=== PATIENT | male | born 1950 | race Caucasian/White ===

== ENCOUNTER 2020-08-30 10:26 | Outpatient (REF) | payer BC, SELFPAY ==
[2020-08-30 10:32] LABS: MANUAL DIFF FLAG NO
[2020-08-30 10:47] LABS: Basophils Percent Auto 0.3 % (0-2); Eosinophils Absolute Auto 0.3 X10*3/uL (0.0-0.4); Eosinophils Percent Auto 4.3 % (0-4); Hematocrit 42.1 % (42-52); Hemoglobin 13.6 g/dl (14.0-18.0); Imm Gran Abs Auto 0.01 X10*3/uL (0.00-0.03); Imm Gran Pct Auto 0.2 % (0.0-0.4); Lymphocytes Absolute Auto 2.2 X10*3/uL (1.2-4.9); Lymphocytes Percent Auto 34.8 % (20-40); Mean Corpuscular HGB Conc 32.3 g/dl (31.0-36.0); Mean Corpuscular Hemoglobin 28.5 pg (27.0-33.0); Mean Corpuscular Volume 88.1 fL (80-98); Mean Platelet Volume 9.4 fL (9.4-12.4); Monocytes Absolute Auto 0.6 X10*3/uL (0.1-1.2); Monocytes Percent Auto 9.1 % (2-11); Neutrophils Absolute Auto 3.2 X10*3/uL (2.0-8.3); Neutrophils Percent Auto 51.3 % (45-73); Platelet Count 303 X10*3/uL (160-400); Red Blood Count 4.78 X10*6/uL (4.60-5.80); White Blood Count 6.3 X10*3/uL (4.8-10.8)
[2020-08-30 11:31] LABS: Alanine Aminotransferase 10 U/L (0-40); Albumin Level 4.2 g/dL (3.5-5.0); Alkaline Phosphatase 68 U/L (39-117); Anion Gap 13 (12-20); Aspartate Amino Transferase 15 U/L (5-37); Bilirubin Total 0.7 mg/dL (0.0-1.0); Blood Urea Nitrogen 17 mg/dL (9-16); Calcium 9.1 mg/dL (8.4-10.2); Carbon Dioxide 25 mmol/L (22-29); Chloride 110 mmol/L (96-108); Cholesterol 157 mg/dL; Estimated Glomerular Filt Rate 53; Glucose Fasting 98 mg/dL (60-99); HDL Cholesterol 44 mg/dL; LDL Cholesterol Calculated 102 mg/dl; Potassium 4.4 mmol/L (3.3-5.1); Sodium 144 mmol/L (135-145); Total Protein 6.7 g/dL (6.5-8.0); Triglycerides 58 mg/dL
[2020-08-30 12:30] LABS: PSA,Total (Free>4and<10) < 0.05 ng/mL (0.00-4.00)
[2020-09-01 05:31] LABS: Lyme Abs Screen <0.90 index
== END 2020-08-30 10:27 | disposition home or self-care (01) ==
LOC: HO.LNP 10:26
PROVIDERS: Visit Provider Internal Medicine
DX: Z00.00 Encounter for general adult medical examination without abnormal findings (principal); Z12.5 Encounter for screening for malignant neoplasm of prostate; I10 Essential (primary) hypertension; E78.00 Pure hypercholesterolemia, unspecified; R97.20 Elevated prostate specific antigen [PSA]; G31.83 Neurocognitive disorder with Lewy bodies
CPT/HCPCS: 80053; 80061; 84153; 85025; 86617; 86618

== ENCOUNTER 2020-09-08 12:18 | Outpatient (REF) | payer MEDICARE, SELFPAY ==
[2020-09-08 12:37] LABS: Appearance Urine CLEAR; Color Urine YELLOW; Glucose Urine UA NEG (NEG); Leukocyte Esterase Urine NEG (NEG); Nitrite Urine NEG (NEG); Specific Gravity - Urine 1.025 (1.005-1.025); Urine Blood TRACE (NEG); Urine Ketones NEG (NEG); Urine Protein NEG (NEG-TRACE)
[2020-09-08 12:46] LABS: Mucus Urine TRACE /LPF; RBC Urine 0-2 /HPF (0); WBC Urine 0 /HPF (0-4)
== END 2020-09-08 12:19 | disposition home or self-care (01) ==
LOC: HO.LNP 12:18
PROVIDERS: Visit Provider Internal Medicine
DX: Z00.00 Encounter for general adult medical examination without abnormal findings (principal)
CPT/HCPCS: 81001

== ENCOUNTER 2021-08-17 07:54 | Emergency (ER) | payer MEDICARE, MEDICAID, SELFPAY ==
--- NOTE | ~2021-08-17 | CT_ITS ---
EXAMINATION: CT HEAD WITHOUT CONTRAST CLINICAL INFORMATION: Altered mental status. COMPARISON: Head CT scan dated 01/23/2019. TECHNIQUE: Contiguous axial imaging was performed from the skull base to vertex without intravenous administration of contrast. Coronal and sagittal reformatted images were obtained. Some limitation secondary to motion artifact. This CT examination was performed using dose optimization techniques as appropriate, variously including the following: *Automated exposure control *Adjustment of mA and/or kV according to patient size (this includes techniques or standardized protocols for targeted exams where dose is matched to indication/reason for exam; i.e. extremities or head) *Use of iterative reconstruction technique DLP: 712 mGy-cm FINDINGS: There is mild widening of the cortical sulci and associated ventriculomegaly. Mild periventricular microvascular changes. The lateral ventricles are symmetrical. The third and fourth ventricles are in their normal midline position. The basilar and prepontine cisterns are unremarkable. There is no acute intra or extracerebral abnormality. There is no mass effect or midline shift. Sections through the bony calvarium are unremarkable. The orbits are intact. The paranasal sinuses are clear. The mastoid air cells are clear. CT/CT head/brain wo con IMPRESSION: No acute intracranial pathology.
--- NOTE | ~2021-08-17 | XR_ITS ---
EXAMINATION: XR CHEST CLINICAL INFORMATION: Weakness COMPARISON: Chest radiograph 06/11/2015 TECHNIQUE: Frontal view of the chest was obtained. FINDINGS: No significant abnormality is noted involving the heart, lungs, mediastinum, bony thorax or soft tissues. XR/XR chest 1V IMPRESSION: Unremarkable examination.
[2021-08-17 08:01] VITALS: BP 136/82; BP 137/89; PULSE 71; PULSE 85; RESP 16; TEMP 36.7; O2SAT 98; BMI 19.1
--- NOTE | 2021-08-17 08:12 | ECG_ITS ---
Test Reason : failure to thrive Blood Pressure : / mmHG Vent. Rate : 078 BPM Atrial Rate : 078 BPM P-R Int : 160 ms QRS Dur : 062 ms QT Int : 380 ms P-R-T Axes : 073 018 065 degrees QTc Int : 433 ms Normal sinus rhythm Possible Left atrial enlargement Borderline ECG When compared with ECG of 11-JUN-2015 04:09, No significant changes seen Referred By: Gunjan Ramirez Electronically Signed By:ZOYA JOEL
--- NOTE | 2021-08-17 08:19 | ED_ITS ---
HPI - Altered Mental Status General Chief Complaint: General Medical Stated Complaint: UNREADABLE Time Seen by Provider: 08/17/21 08:12 Source: patient and EMS Mode of arrival: EMS Limitations: no limitations and altered mental status History of Present Illness HPI narrative: 71 yo male with hx of HTN, gout, dementia comes from home he has been progressing but the patient has rapidly progressed over the past week he has fallen x 3 in the past month no head strikes. He comes in with strong odor of urine. notes rapid decompensation MD complaint: altered mental status and decreased responsiveness Onset (ago): week(s) (1) Timing confirmed by: spouse Severity: severe Consistency of symptoms: getting Worse Context: other (dementia) Associated symptoms: malaise, weakness, foul smelling urine and difficulty walking Related Data Home Medications Medication Instructions Recorded Confirmed No Known Home Meds 08/17/21 08/17/21 Allergies Allergy/AdvReac Type Severity Reaction Status Date / Time azithromycin [AZITHROMYCIN] Allergy Unknown UNKNOWN Unverified 11/05/19 15:36 ibuprofen [IBUPROFEN] Allergy Unknown KIDNEY Unverified 11/05/19 15:36 PROBLEMS lisinopril [LISINOPRIL] Allergy Unknown COUGH Unverified 11/05/19 15:36 losartan [LOSARTAN] Allergy Unknown HEART Unverified 11/05/19 15:36 RACING valsartan [From DIOVAN] Allergy Unknown ELEVATED Unverified 11/05/19 15:36 POTASSIUM Review of Systems Review of Systems: ROS unable to be obtained due to altered mental status PMFSH Past Medical History Attestation statement: The following information was validated with the patient. Medical History Dementia Gout HTN (hypertension) Social History Social History (Updated 08/17/21 @ 08:20 by Gunjan Ramirez DO) Patient Tobacco Use Status: Never used Tobacco Advance Directives: Yes Advance Directives Information Provided: Yes Advance Directives on File: No Physical Exam ED Vital Signs: Vital Signs - 24 hr 08/17/21 08:01 08/17/21 09:06 Temperature 98.1 F 99.4 F Pulse Rate 71 Respiratory Rate 16 Blood Pressure 137/89 Pulse Oximetry 98 Oxygen Delivery Method Room Air BMI result Body Mass Index 19.1 Appearance: Weak appearing, Confused just says okay to everything. Mild acute distress. Eyes: Pupils equal, round and reactive to light. ENT: Pharynx dry MM Neck: Normal inspection. Neck supple. CVS: Normal heart rate and rhythm. Pulses normal. Respiratory: No respiratory distress. Breath sounds normal. Abdomen: Soft and non-tender. does not grimace Skin: Skin warm and dry. Normal skin color. poor skin turgor. Extremities: No lower extremity edema. Neuro: diffuse weakness just says ok over and over cannot participate in exam Course Course Course Narrative: no acute findings will refer to CM Patient placed in physician observation at 10am. The indication for observation is that the patient needs more time for CM to aid in placing patient. FTT patient confused and weak. MDM - Altered Mental Status MDM Narrative Medical decision making narrative: 71 yo male with hx of alzheimer's, HTN, gout presents with worsening weakness, falls, foul smelling urine. Has decompensated x 1 week. At this time will need labs, cultures, lactic acid, CT head to r/o ICH, CXR, UA and empiric ceftriaxone. Dispo per results and findings. Lab Data Result diagrams: 08/17/21 08:57 08/17/21 08:57 Labs: Lab Results 08/17/21 08/17/21 08/17/21 Range/Units 08:56 08:56 08:56 WBC (4.8-10.8) X10*3/uL RBC (4.60-5.80) X10*6/uL Hgb (14.0-18.0) g/dl Hct (42.0-52.0) % MCV (80.0-98.0) fL MCH (27.0-33.0) pg MCHC (31.0-36.0) g/dl RDW (11.0-16.0) % Plt Count (160-400) X10*3/uL MPV (9.4-12.4) fL Immature Gran % (Auto) (0.0-0.4) % Neut % (Auto) (45-73) % Lymph % (Auto) (20-40) % Mcdowell % (Auto) (2-11) % Eos % (Auto) (0-4) % Baso % (Auto) (0-2) % Lymph # (Auto) (1.2-4.9) X10*3/uL [place]cd[place] # (Auto) (0.1-1.2) X10*3/uL Eos # (Auto) (0.0-0.4) X10*3/uL Baso # (Auto) (0.0-0.2) X10*3/uL Abs Immat Gran (auto) (0.00-0.03) X10*3/uL Absolute Neuts (auto) (2.0-8.3) x10*3/uL Absolute Nucleated RBC (0.0-0.012) X10*3/uL Nucleated RBC % (auto) (0.0-0.2) /100WBC PT 12.6 (10.0-13.1) SEC INR 1.1 (0.9-1.1) APTT 40.7 H (24.1-38.0) SEC Sodium (135-145) mmol/L Potassium (3.3-5.1) mmol/L Chloride (96-108) mmol/L Carbon Dioxide (22-29) mmol/L Anion Gap (12-20) BUN (9-16) mg/dL Creatinine (0.5-1.4) mg/dL Estim Creat Clear Calc Estimated GFR Random Glucose (60-115) mg/dL Lactic Acid 0.9 (0.5-2.0) mmol/L Calcium (8.4-10.2) mg/dL Magnesium (1.6-2.6) mg/dL Total Bilirubin (0.0-1.0) mg/dL Direct Bilirubin (0.0-0.5) mg/dL AST (5-37) U/L ALT (0-40) U/L Alkaline Phosphatase (39-117) U/L Ammonia 18 (13-55) umol/L Total Creatine Kinase (38-174) U/L Troponin I High Sens (<3.5-35.0) ng/L Total Protein (6.5-8.0) g/dL Albumin (3.5-5.0) g/dL Lipase (8-78) U/L TSH (0.32-4.0) uIU/mL Urine Color Urine Appearance Urine pH (5.0-8.0) Ur Specific [place] (1.005-1.025) Urine Protein (NEG-TRACE) MG/DL Urine Glucose (UA) (NEG) MG/DL Urine Ketones (NEG) MG/DL Urine Blood (NEG) Urine Nitrite (NEG) Ur Leukocyte Esterase (NEG) Urine RBC (0) /HPF Urine WBC (0-4) /HPF Ur Squamous Epith Cells /LPF Urine Bacteria /LPF Urine Mucus /LPF COVID-19 (ISSAC) (Negative) COVID-19 Clin Com 08/17/21 08/17/21 08/17/21 Range/Units 08:57 08:57 08:57 WBC 8.3 (4.8-10.8) X10*3/uL RBC 5.09 (4.60-5.80) X10*6/uL Hgb 14.5 (14.0-18.0) g/dl Hct 43.9 (42.0-52.0) % MCV 86.2 (80.0-98.0) fL MCH 28.5 (27.0-33.0) pg MCHC 33.0 (31.0-36.0) g/dl RDW 11.9 (11.0-16.0) % Plt Count 320 (160-400) X10*3/uL MPV 9.0 L (9.4-12.4) fL Immature Gran % (Auto) 0.4 (0.0-0.4) % Neut % (Auto) 72.2 (45-73) % Lymph % (Auto) 18.0 L (20-40) % Mcdowell % (Auto) 8.0 (2-11) % Eos % (Auto) 1.2 (0-4) % Baso % (Auto) 0.2 (0-2) % Lymph # (Auto) 1.5 (1.2-4.9) X10*3/uL [place]cd[place] # (Auto) 0.7 (0.1-1.2) X10*3/uL Eos # (Auto) 0.1 (0.0-0.4) X10*3/uL Baso # (Auto) 0.0 (0.0-0.2) X10*3/uL Abs Immat Gran (auto) 0.03 (0.00-0.03) X10*3/uL Absolute Neuts (auto) 6.0 (2.0-8.3) x10*3/uL Absolute Nucleated RBC 0.000 (0.0-0.012) X10*3/uL Nucleated RBC % (auto) 0.0 (0.0-0.2) /100WBC PT (10.0-13.1) SEC INR (0.9-1.1) APTT (24.1-38.0) SEC Sodium 137 (135-145) mmol/L Potassium 4.6 (3.3-5.1) mmol/L Chloride 103 (96-108) mmol/L Carbon Dioxide 26 (22-29) mmol/L Anion Gap 13 (12-20) BUN 18 H (9-16) mg/dL Creatinine 1.13 (0.5-1.4) mg/dL Estim Creat Clear Calc 55.8 Estimated GFR > 60 Random Glucose 96 (60-115) mg/dL Lactic Acid (0.5-2.0) mmol/L Calcium 9.4 (8.4-10.2) mg/dL Magnesium 2.1 (1.6-2.6) mg/dL Total Bilirubin 1.2 H (0.0-1.0) mg/dL Direct Bilirubin 0.5 (0.0-0.5) mg/dL AST 15 (5-37) U/L ALT 10 (0-40) U/L Alkaline Phosphatase 84 D (39-117) U/L Ammonia (13-55) umol/L Total Creatine Kinase 60 (38-174) U/L Troponin I High Sens (<3.5-35.0) ng/L Total Protein 7.4 (6.5-8.0) g/dL Albumin 4.4 (3.5-5.0) g/dL Lipase 18 (8-78) U/L TSH (0.32-4.0) uIU/mL Urine Color Urine Appearance Urine pH (5.0-8.0) Ur Specific [place] (1.005-1.025) Urine Protein (NEG-TRACE) MG/DL Urine Glucose (UA) (NEG) MG/DL Urine Ketones (NEG) MG/DL Urine Blood (NEG) Urine Nitrite (NEG) Ur Leukocyte Esterase (NEG) Urine RBC (0) /HPF Urine WBC (0-4) /HPF Ur Squamous Epith Cells /LPF Urine Bacteria /LPF Urine Mucus /LPF COVID-19 (ISSAC) Negative (Negative) COVID-19 Clin Com See Note 08/17/21 08/17/21 08/17/21 Range/Units 08:57 08:57 09:32 WBC (4.8-10.8) X10*3/uL RBC (4.60-5.80) X10*6/uL Hgb (14.0-18.0) g/dl Hct (42.0-52.0) % MCV (80.0-98.0) fL MCH (27.0-33.0) pg MCHC (31.0-36.0) g/dl RDW (11.0-16.0) % Plt Count (160-400) X10*3/uL MPV (9.4-12.4) fL Immature Gran % (Auto) (0.0-0.4) % Neut % (Auto) (45-73) % Lymph % (Auto) (20-40) % Mcdowell % (Auto) (2-11) % Eos % (Auto) (0-4) % Baso % (Auto) (0-2) % Lymph # (Auto) (1.2-4.9) X10*3/uL [place] # (Auto) (0.1-1.2) X10*3/uL Eos # (Auto) (0.0-0.4) X10*3/uL Baso # (Auto) (0.0-0.2) X10*3/uL Abs Immat Gran (auto) (0.00-0.03) X10*3/uL Absolute Neuts (auto) (2.0-8.3) x10*3/uL Absolute Nucleated RBC (0.0-0.012) X10*3/uL Nucleated RBC % (auto) (0.0-0.2) /100WBC PT (10.0-13.1) SEC INR (0.9-1.1) APTT (24.1-38.0) SEC Sodium (135-145) mmol/L Potassium (3.3-5.1) mmol/L Chloride (96-108) mmol/L Carbon Dioxide (22-29) mmol/L Anion Gap (12-20) BUN (9-16) mg/dL Creatinine (0.5-1.4) mg/dL Estim Creat Clear Calc Estimated GFR Random Glucose (60-115) mg/dL Lactic Acid (0.5-2.0) mmol/L Calcium (8.4-10.2) mg/dL Magnesium (1.6-2.6) mg/dL Total Bilirubin (0.0-1.0) mg/dL Direct Bilirubin (0.0-0.5) mg/dL AST (5-37) U/L ALT (0-40) U/L Alkaline Phosphatase (39-117) U/L Ammonia (13-55) umol/L Total Creatine Kinase (38-174) U/L Troponin I High Sens < 3.5 (<3.5-35.0) ng/L Total Protein (6.5-8.0) g/dL Albumin (3.5-5.0) g/dL Lipase (8-78) U/L TSH 1.35 (0.32-4.0) uIU/mL Urine Color YELLOW Urine Appearance HAZY Urine pH 6.0 (5.0-8.0) Ur Specific [place] 1.025 (1.005-1.025) Urine Protein NEG (NEG-TRACE) MG/DL Urine Glucose (UA) NEG (NEG) MG/DL Urine Ketones NEG (NEG) MG/DL Urine Blood 1+ H (NEG) Urine Nitrite NEG (NEG) Ur Leukocyte Esterase NEG (NEG) Urine RBC 1-4 (0) /HPF Urine WBC 0 (0-4) /HPF Ur Squamous Epith Cells TRACE /LPF Urine Bacteria NONE /LPF Urine Mucus 2+ /LPF COVID-19 (ISSAC) (Negative) COVID-19 Clin Com ECG Data ECG #1: Attestation: I personally reviewed and interpreted this ECG as follows: ECG interpretation date: 08/17/21 ECG interpretation time: 08:29 Interpretation: Rate: 78 Rhythm: NSR [place]: normal Normal P waves. Normal DYANA. Normal QRS complex. ST T wave : no COURTNEY inverted V1 and V2 qTC: normal prior studies: no acute ischemia The study has been interpreted contemporaneously by me. Discharge Plan Discharge Clinical Impression: Dementia, Adult failure to thrive Patient Disposition: Still a Patient Prescriptions: No Action No Known Home Meds
[2021-08-17] MEDS: 0.9 % Sodium Chloride 500 ML IV (08:55)
[2021-08-17 09:03] LABS: MANUAL DIFF FLAG NO
[2021-08-17 09:06] VITALS: TEMP 37.4
[2021-08-17 09:06] LABS: Basophils Percent Auto 0.2 % (0-2); Eosinophils Absolute Auto 0.1 X10*3/uL (0.0-0.4); Eosinophils Percent Auto 1.2 % (0-4); Hematocrit 43.9 % (42.0-52.0); Hemoglobin 14.5 g/dl (14.0-18.0); Imm Gran Abs Auto 0.03 X10*3/uL (0.00-0.03); Imm Gran Pct Auto 0.4 % (0.0-0.4); Lymphocytes Absolute Auto 1.5 X10*3/uL (1.2-4.9); Mean Corpuscular Hemoglobin 28.5 pg (27.0-33.0); Mean Corpuscular Volume 86.2 fL (80.0-98.0); Monocytes Absolute Auto 0.7 X10*3/uL (0.1-1.2); Neutrophils Percent Auto 72.2 % (45-73); Platelet Count 320 X10*3/uL (160-400); Red Blood Count 5.09 X10*6/uL (4.60-5.80); Red Cell Distribution Width 11.9 % (11.0-16.0); White Blood Count 8.3 X10*3/uL (4.8-10.8)
[2021-08-17] MEDS: cefTRIAXone sodium 1 GM in 0.9 % Sodium Chloride 50 ML IV (09:09)
--- NOTE | 2021-08-17 09:10 | PHA.MEDREC ---
Pharmacy Consult ? Medication Reconciliation Pharmacy has completed the medication reconciliation. Pt's at bedside, notes no home medications. 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
[2021-08-17 09:12] LABS: INTERNATIONAL NORM RATIO 1.1 (0.9-1.1); Prothrombin Time 12.6 SEC (10.0-13.1)
[2021-08-17 09:14] LABS: Partial Thromboplastin Time 40.7 SEC (24.1-38.0)
[2021-08-17 09:19] LABS: Ammonia 18 umol/L (13-55)
[2021-08-17 09:22] LABS: Lactic Acid 0.9 mmol/L (0.5-2.0)
[2021-08-17 09:23] LABS: COVID-19 Test Negative (Negative); IDNOW Serial# 16C4AD1C
[2021-08-17 09:27] LABS: Alanine Aminotransferase 10 U/L (0-40); Albumin Level 4.4 g/dL (3.5-5.0); Alkaline Phosphatase 84 U/L (39-117); Anion Gap 13 (12-20); Aspartate Amino Transferase 15 U/L (5-37); Bilirubin Direct 0.5 mg/dL (0.0-0.5); Bilirubin Total 1.2 mg/dL (0.0-1.0); Blood Urea Nitrogen 18 mg/dL (9-16); Calcium 9.4 mg/dL (8.4-10.2); Carbon Dioxide 26 mmol/L (22-29); Chloride 103 mmol/L (96-108); Creatinine Clr Calc Pharmacy 55.8; Estimated Glomerular Filt Rate > 60; Glucose Random 96 mg/dL (60-115); Lipase 18 U/L (8-78); Magnesium 2.1 mg/dL (1.6-2.6); Potassium 4.6 mmol/L (3.3-5.1); Sodium 137 mmol/L (135-145); Total Protein 7.4 g/dL (6.5-8.0)
[2021-08-17 09:32] LABS: Troponin-I High Sensitivity < 3.5 ng/L (<3.5-35.0)
[2021-08-17 09:40] LABS: Appearance Urine HAZY; Color Urine YELLOW; Glucose Urine UA NEG (NEG); Leukocyte Esterase Urine NEG (NEG); Nitrite Urine NEG (NEG); Specific Gravity - Urine 1.025 (1.005-1.025); UACC Culture Trigger NO; Urine Blood 1+ (NEG); Urine Ketones NEG (NEG); Urine Protein NEG (NEG-TRACE)
--- NOTE | 2021-08-17 09:44 | PC.NURSE ---
Pt tolerated straight cath well. 50 cc of urine collected for specimen. Cath removed.
[2021-08-17 09:45] LABS: Mucus Urine 2+ /LPF; Squamous Epithelial Cell Urine TRACE /LPF
[2021-08-17 09:46] LABS: WBC Urine 0 /HPF (0-4)
[2021-08-17 09:47] LABS: TSH reflex Free T4 1.35 uIU/mL (0.32-4.0)
[2021-08-17 10:36] LABS: IDNOW Serial# 9DB6401D; Influenza A Negative (Negative); Influenza B2 Negative (Negative)
[2021-08-17 13:19] VITALS: BP 137/89; PULSE 71; O2SAT 98
[2021-08-17 13:33] VITALS: BP 145/82
--- NOTE | 2021-08-17 15:23 | MHC.CM.ED ---
Met with pt and dtr to review d/c planning needs: per dtr, pt is mostly non communicative and cannot participate in assessment d/t dementia. Pt resides with spouse who is the primary healthcare recruiter. Pt has no DME or services at this time. Pt's dtr states pt has been declining with physical functioning: trips, falls, requires total care. Pt's (who had just left prior to CM assessment) is not able to meet the physical demands of care pt now has. Discussed obtaining services at home to which dtr stated that they are looking for placement with an option to convert to LTC if needed. Explained limited beds/offers for LTC beds but will initiate search. PT eval supports LTC. HCP on file - [facility] referals made - fully vaccinated. CM to follow.
[2021-08-17 16:20] VITALS: BP 142/84; PULSE 72; RESP 16; TEMP 37.1; O2SAT 97
[2021-08-17 23:07] VITALS: BP 117/69; PULSE 70; RESP 18; TEMP 37.1; O2SAT 97
[2021-08-18 06:04] VITALS: BP 137/73; PULSE 70; RESP 16; O2SAT 94
[2021-08-18 07:23] VITALS: BP 133/78; PULSE 65; RESP 14; TEMP 36.2; O2SAT 100
[2021-08-18 07:48] LABS: Glucose, Whole Blood 70 mg/dL (60-115)
--- NOTE | 2021-08-18 08:17 | PC.NURSE ---
pt's poc was 74 requested/given water and oj with honey thick nectar and pudding. pt ate/drank 100% of water and oj
--- NOTE | 2021-08-18 08:33 | PC.NURSE ---
patient has history of dementia . has been calm and cooperative at this time . unaware of name , time place or situation. pearrla. lungs clear . heart beat regular at 72 beats . skin pink and dry . abdomen soft and non distended positive bowel sounds in all quadrants . catheter is patent , urine yellow . bed at lowest position .
--- NOTE | 2021-08-18 09:30 | PC.NURSE ---
pt's friend dania is at bedside visiting pt.
[2021-08-18 09:37] VITALS: BP 129/72; PULSE 78; RESP 16; TEMP 36.2; O2SAT 95
--- NOTE | 2021-08-18 10:25 | PC.NURSE ---
pt to be d/c'd to [facility] at 1130. pt/ aware of care.
--- NOTE | 2021-08-18 10:26 | MHC.CM.ED ---
Patient remains in ER. Patient's accepted a bed at [facility]. Patient will leave via BLS at 1130am. MDS completed. Faxed to [facility] and send to [facility]. Patient, Kayla Gomez RN and Evelyn KENNEDY aware. Continue to monitor for d/c needs.
[2021-08-18 10:53] LABS: Glucose, Whole Blood 87 mg/dL (60-115)
--- NOTE | 2021-08-18 10:53 | PC.NURSE ---
RN to RN given to DIYA at [facility]
--- NOTE | 2021-08-18 11:14 | PC.NURSE ---
emptied [place] cath. 50 cc urine output
--- NOTE | 2021-08-18 11:34 | MHC.SLORD ---
Speech Language Pathology Order Status: Received order for speech consult. Discussed w/ referring physician, Mk Mendez- Consult no longer indicated as patient is leaving for @ 11:30am.
[2021-08-18 12:07] VITALS: BP 118/59; PULSE 66; RESP 12; TEMP 36.2; O2SAT 100
== END 2021-08-18 15:58 | disposition still patient (30) ==
PROVIDERS: Emergency Provider Emergency Medicine; PCP Internal Medicine
DX: R62.7 Adult failure to thrive (principal); G30.9 Alzheimer's disease, unspecified; F02.80 Dementia in other diseases classified elsewhere, unspecified severity, without behavioral disturbance, psychotic disturbance, mood disturbance, and anxiety; R53.1 Weakness; R29.6 Repeated falls; Z20.822 Contact with and (suspected) exposure to COVID-19; I10 Essential (primary) hypertension
CPT/HCPCS: 36415; 51701; 70450; 71045; 80048; 80076; 81001; 82140; 82550; 82947; 83605; 83690; 83735; 84443; 84484; 85025; 85610; 85730; 87040; 87502; 87635; 93005; 96361; 96365; 97162; 99285; J0696